=== PATIENT | female | born 1995 | race Caucasian/White ===

== ENCOUNTER 2020-02-15 22:55 | Emergency (ER) | payer OTHER ==
[~2020-02-15] VITALS: Ht 142.2 cm; Wt 51.7 kg
[2020-02-15 23:05] VITALS: BP 98/40; Ht 142.2 cm; Wt 51.7 kg
[2020-02-16 01:05] LABS: UA SPECIFIC GRAVITY 1.025 (1.005-1.035); microscopic required? YES; urine erythrocyte NEGATIVE (NEGATIVE)
== END 2020-02-16 01:32 | disposition home or self-care (01) ==
LOC: ED 22:55
PROVIDERS: Emergency Medicine
DX: B34.9 Viral infection, unspecified (principal); N39.0 Urinary tract infection, site not specified
CPT/HCPCS: 87804